=== PATIENT | female | born 1990 | race Caucasian/White ===

== ENCOUNTER 2018-08-15 18:05 | Emergency (ER) | payer OTHER ==
[~2018-08-15] VITALS: Ht 162.6 cm; Wt 55.3 kg
== END 2018-08-15 22:45 | disposition home or self-care (01) ==
LOC: ER 18:05
DX: J32.8 Other chronic sinusitis (principal); R42 Dizziness and giddiness

== ENCOUNTER 2018-10-07 02:44 | Emergency (ER) | payer OTHER ==
[~2018-10-07] VITALS: Ht 162.6 cm; Wt 54.4 kg
[2018-10-07] MEDS ORDERED: IBUPROFEN400 MG PO (07:25)
[2018-10-07] MEDS ORDERED: MECLIZINE HCL25 MG PO (07:25)
[2018-10-07] MEDS ORDERED: TESSALON PERLE100 M1 PO (07:25)
[2018-10-07] MEDS ORDERED: ZITHROMAX500 MG PO (07:25)
[2018-10-07] MEDS ORDERED: MECLIZINE HCL12.5 MG (07:53)
== END 2018-10-07 08:21 | disposition home or self-care (01) ==
LOC: ER 02:44
DX: J06.9 Acute upper respiratory infection, unspecified (principal); B96.0 Mycoplasma pneumoniae [M. pneumoniae] as the cause of diseases classified elsewhere

== ENCOUNTER 2018-10-07 09:27 | Emergency (ER) | payer OTHER ==
[~2018-10-07] VITALS: Ht 162.6 cm; Wt 54.4 kg
[~2018-10-07 09:27] MED LIST: IBUPROFEN400 MG PO; MECLIZINE HCL12.5 MG; MECLIZINE HCL25 MG PO; TESSALON PERLE100 M1 PO; ZITHROMAX500 MG PO
== END 2018-10-07 10:50 | disposition home or self-care (01) ==
LOC: ER 09:27
DX: R53.81 Other malaise (principal); T45.0X5A Adverse effect of antiallergic and antiemetic drugs, initial encounter

== ENCOUNTER 2018-10-07 20:08 | Emergency (ER) | payer OTHER ==
[~2018-10-07] VITALS: Ht 162.6 cm; Wt 54.4 kg
== END 2018-10-08 00:35 | disposition home or self-care (01) ==
LOC: ER 20:08
DX: R20.0 Anesthesia of skin (principal); T48.3X5A Adverse effect of antitussives, initial encounter

== ENCOUNTER 2018-10-09 05:31 | Emergency (ER) | payer OTHER ==
[~2018-10-09] VITALS: Ht 162.6 cm; Wt 54.4 kg
== END 2018-10-09 14:18 | disposition left against medical advice (07) ==
LOC: ER 05:31
DX: Z53.20 Procedure and treatment not carried out because of patient's decision for unspecified reasons (principal)

== ENCOUNTER → 2018-11-08 | Day surgery (SDC) | payer OTHER ==
[~2018-11-08] MED LIST changes: +ZYRTEC10 M3 PO
== END | disposition home or self-care (01) ==
LOC: ADM 10-26 14:30 → CIR.AMB 09:43 → EDBD 14:30 → CIR.AMB 14:30
DX: N84.0 Polyp of corpus uteri (principal)

== ENCOUNTER 2019-10-25 02:21 | Emergency (ER) | payer OTHER ==
[~2019-10-25] VITALS: Ht 162.6 cm; Wt 54.4 kg
== END 2019-10-25 08:38 | disposition home or self-care (01) ==
LOC: ER 02:21
DX: K21.9 Gastro-esophageal reflux disease without esophagitis (principal)

== ENCOUNTER 2019-11-11 20:28 | Emergency (ER) | payer OTHER ==
[~2019-11-11] VITALS: Ht 162.6 cm; Wt 54.4 kg
[2019-11-11] MEDS ORDERED: FOLIC ACID0.8 M1 (20:52)
[2019-11-12] MEDS ORDERED: MACROBID 100 M100 MG PO (02:09)
== END 2019-11-12 02:43 | disposition home or self-care (01) ==
LOC: ER 20:28
DX: O26.892 Other specified pregnancy related conditions, second trimester (principal); R10.2 Pelvic and perineal pain; Z34.02 Encounter for supervision of normal first pregnancy, second trimester

== ENCOUNTER 2020-02-18 10:34 | Outpatient (CLI) | payer OTHER ==
[~2020-02-18 10:34] MED LIST changes: +FOLIC ACID0.8 M1; +MACROBID 100 M100 MG PO
== END 2020-02-18 11:42 | disposition home or self-care (01) ==
LOC: NST 10:34
PROVIDERS: ATTEND Obstetrics & Gynecology
DX: Z34.83 Encounter for supervision of other normal pregnancy, third trimester (principal)

== ENCOUNTER 2020-02-22 10:23 | Outpatient (CLI) | payer OTHER | END 2020-02-22 11:12 | disposition home or self-care (01) | LOC: NST 10:23 | PROVIDERS: ATTEND Obstetrics & Gynecology | DX: Z34.83 Encounter for supervision of other normal pregnancy, third trimester (principal) ==

== ENCOUNTER 2020-03-26 12:15 | Inpatient (IN) | payer OTHER ==
[~2020-03-26] VITALS: Ht 162.6 cm; Wt 61.7 kg
== END 2020-04-06 16:26 | disposition home or self-care (01) | DRG 807 ==
LOC: LDR 04-04 05:21 → SURG-SUITE 04-04 13:16 → OB/GYN 04-11 12:15
PROVIDERS: ADMIT Obstetrics & Gynecology; ATTEND Obstetrics & Gynecology
PROC: 10E0XZZ Delivery of Products of Conception, External Approach (ICD-10-PCS; principal; 2020-04-04)
PROC: 0KQM0ZZ Repair Perineum Muscle, Open Approach (ICD-10-PCS; 2020-04-04)
PROC: 4A1HXFZ Monitoring of Products of Conception, Cardiac Rhythm, External Approach (ICD-10-PCS; 2020-04-04)
PROC: 3E033VJ Introduction of Other Hormone into Peripheral Vein, Percutaneous Approach (ICD-10-PCS; 2020-04-04)
DX: O70.1 Second degree perineal laceration during delivery (principal); Z37.0 Single live birth; Z3A.39 39 weeks gestation of pregnancy

== ENCOUNTER 2020-08-22 09:10 | Emergency (ER) | payer OTHER ==
[~2020-08-22] VITALS: Ht 162.6 cm; Wt 56.2 kg
[2020-08-22] MEDS ORDERED: ZITHROMAX200 MG PO (12:26)
== END 2020-08-22 12:29 | disposition home or self-care (01) ==
LOC: ER 09:10
DX: B34.9 Viral infection, unspecified (principal); B96.0 Mycoplasma pneumoniae [M. pneumoniae] as the cause of diseases classified elsewhere

== ENCOUNTER 2020-09-05 12:56 | Emergency (ER) | payer OTHER ==
[~2020-09-05] VITALS: Ht 162.6 cm; Wt 56.2 kg
[~2020-09-05 12:56] MED LIST changes: +ZITHROMAX200 MG PO
== END 2020-09-05 17:34 | disposition home or self-care (01) ==
LOC: ER 12:56
DX: R10.2 Pelvic and perineal pain (principal)

== ENCOUNTER 2021-08-11 22:40 | Emergency (ER) | payer OTHER ==
[~2021-08-11] VITALS: Ht 162.6 cm; Wt 56.2 kg
[2021-08-12] MEDS ORDERED: NORFLEX100MG PO
== END 2021-08-12 00:05 | disposition home or self-care (01) ==
LOC: ER 22:40
DX: M62.838 Other muscle spasm (principal); Z88.2 Allergy status to sulfonamides; Z91.013 Allergy to seafood

== ENCOUNTER 2021-08-15 22:57 | Emergency (ER) | payer OTHER ==
[~2021-08-15] VITALS: Ht 162.6 cm; Wt 56.2 kg
[~2021-08-15 22:57] MED LIST changes: +NORFLEX100MG PO
== END 2021-08-16 16:35 | disposition home or self-care (01) ==
LOC: ER 22:57
DX: T88.7XXA Unspecified adverse effect of drug or medicament, initial encounter (principal); Y92.238 Other place in hospital as the place of occurrence of the external cause; Z88.2 Allergy status to sulfonamides; Z91.013 Allergy to seafood; Z20.822 Contact with and (suspected) exposure to COVID-19

== ENCOUNTER 2022-05-12 13:09 | Emergency (ER) | payer OTHER ==
[~2022-05-12] VITALS: Ht 162.6 cm; Wt 55.3 kg
[2022-05-12] MEDS ORDERED: NORFLEX100MG PO (15:50)
[2022-05-12] MEDS ORDERED: KETO10TA2 PO (15:50)
== END 2022-05-12 16:24 | disposition home or self-care (01) ==
LOC: ER 13:09
DX: M54.2 Cervicalgia (principal); M62.838 Other muscle spasm

== ENCOUNTER 2023-06-17 22:43 | Emergency (ER) | payer OTHER ==
[~2023-06-17] VITALS: Ht 162.6 cm; Wt 56.7 kg
[~2023-06-17 22:43] MED LIST changes: +KETO10TA2 PO
[2023-06-18] MEDS ORDERED: KETOROLAC TROMETHAMINE 60 MG VIAL IM STA (06:59)
[2023-06-18] MEDS ORDERED: ORPHENADRINE CITRATE 30 MG/ML AMPUL IM STA (07:00)
[2023-06-18] MEDS ORDERED: OxyCODONE HCL/APAP UD (PERCOCET) PO STA (07:00)
== END 2023-06-18 07:20 | disposition home or self-care (01) ==
LOC: ER 22:43
DX: M54.59 Other low back pain (principal)